=== PATIENT | female | born 1970 | race Caucasian/White ===

== ENCOUNTER 2017-12-29 09:03 | Day surgery (SDC) | payer OTHER ==
[2017-12-27 08:20] VITALS: BMI 30.9
[~2017-12-29 09:03] MED LIST: LACTATED RINGERS 1,000 ML IV SCH; LIDOCAINE 1% 20 ML VIAL (10MG/ML) FOR IV START INTRADERMA PRN; MIDAZOLAM 2 MG/2 ML VIAL IV PRN
[2017-12-29 09:54] VITALS: RESP 18; TEMP 97.9
[2017-12-29] MEDS ORDERED: LIDOCAINE 1% INJ 10MG/ML (20 ML MDV) ONE (10:35)
[2017-12-29] MEDS ORDERED: PROPOFOL 10 MG/ML 20 ML VIAL IV ONE (10:35)
[2017-12-29] MEDS ORDERED: GLYCOPYRROLATE 0.2 MG/ML 2 ML VIAL ONE (10:35)
--- NOTE | 2017-12-29 10:52 | P.PCN ---
Date of Procedure: 12/29/17 Procedure(s) Performed: Brief history: Patient is a pleasant 47-year-old white female, scheduled for an elective upper endoscopy as well as colonoscopy as a part of evaluation of GERD, intermittent heartburn and throat irritation. She also has prior history of colon polyps in the last colonoscopy was done 3 years ago. Procedure performed: Esophagogastroduodenoscopy Colonoscopy Preoperative diagnosis: GERD/throat irritation History of colon polyps Anesthesia: MAC Procedure: After informed consent was obtained from the patient was brought into the endoscopy unit and IV sedation was administered by anesthesia under continuous monitoring. Initially upper endoscopy was done. The Olympus GF 160 video endoscope was inserted inserted into the mouth and esophagus intubated without any difficulty and was gradually advanced into the stomach and duodenum and carefully examined. The bulb and second part of the duodenum appeared normal. The scope was then withdrawn into the stomach adequately insufflated with air and upon careful examination the antrum and body, cardia and fundus appeared normal. The scope was then withdrawn into the esophagus. The GE junction was located at 39 cm to the incisors. It appeared regular with no erythema erosions or ulcerations. Rest of the esophagus appeared normal. Patient tolerated the procedure well. At this time the patient continued to remain sedation. Initial digital rectal examination was normal. Olympus CF 160 video colonoscope was then inserted into the rectum and gradually advanced to the cecum without any difficulty. Careful examination was performed as the scope was gradually being withdrawn. The prep was excellent. The cecum, ascending colon, transverse colon, descending colon, sigmoid colon and rectum appeared normal. Retroflexion was performed in the rectum and no lesions were noted. Patient tolerated the procedure well. Impression: 1. Upper endoscopy revealed normal-appearing esophagus stomach and duodenum. 2. Colonoscopy was within normal limits with no evidence of colitis or colorectal Recommendations: Findings of this examination were discussed with the patient as well as her family. She can use [id number] Pepcid as needed for GERD symptoms. She was advised to have a repeat surveillance colonoscopy in 5 years because of the prior history of colon polyps.
[2017-12-29 11:28] VITALS: BP 114/76; PULSE 89
== END 2017-12-29 11:44 | disposition home or self-care (01) ==
LOC: ORWHC2ENDO 09:03
PROVIDERS: ATTEND Internal Medicine Gastroenterology
DX: K21.9 Gastro-esophageal reflux disease without esophagitis (principal); I44.7 Left bundle-branch block, unspecified; Z86.010 Personal history of colon polyps; Z88.2 Allergy status to sulfonamides; Z79.899 Other long term (current) drug therapy
CPT/HCPCS: 45378; 43235; J2001; J2704

== ENCOUNTER → 2018-03-21 | Outpatient (CLI) | payer OTHER ==
--- NOTE | 2018-03-21 13:41 | US ---
EXAMINATION TYPE: US thyroid st tissue head/neck DATE OF EXAM: 03/21/2018 COMPARISON: NONE CLINICAL HISTORY: E04.9 NONTOXIC GOITER,. Right neck swelling, on thyroid meds. GLAND SIZE: Right Lobe: 4.3 x 1.4 x 1.6 cm Overall Parenchyma: homogenous Left Lobe: 4.2 x 1.3 x 1.5 cm Overall Parenchyma: homogeneous Isthmus Thickness: 0.2 cm NODULES RIGHT: # of nodules measured on right: 0 LEFT: # of nodules measured on left: 0 ISTHMUS: # of nodules measured in the isthmus: 0 Bilateral neck scanned, left neck: 2.1 x 0.7 x 1.0cm hypoechoic vascular structure lateral to thyroid , probable lymph node. There is homogeneous normal sized thyroid without discrete nodule. Towards end of study technologist sullivan prominent lymph node with vascularity and loss of fatty hilum, reactive adenopathy is felt pres ent. IMPRESSION: Normal sized thyroid without discrete nodule. Correlate for left-sided infectious process or inflamma tion.
[2018-03-21 18:21] LABS: Gliadin AB IgA, Unit 0.7 U/mL
== END | disposition home or self-care (01) ==
LOC: RADUSWWP 06:56
PROVIDERS: ATTEND Allergy & Immunology
DX: E04.9 Nontoxic goiter, unspecified (principal); K21.9 Gastro-esophageal reflux disease without esophagitis
CPT/HCPCS: 76536; 82784; 83516; 84443

== ENCOUNTER → 2018-04-09 | Outpatient (CLI) | payer OTHER ==
--- NOTE | 2018-04-09 11:22 | US ---
EXAMINATION TYPE: US thyroid st tissue head/neck DATE OF EXAM: 04/09/2018 COMPARISON: US CLINICAL HISTORY: R59.0 Cervical Lymphadenopathy localized enlarged. F/U on enlarged lymph. On today's study lymph node measures 1.8 x 0.7 x 1.0cm versus prior measurement of 2.1 x 0.7 x 1.0 cm . On today's examination the lymph node demonstrates increased echogenicity which may reflect underly ing necrosis. IMPRESSION: Groin lymph node is slightly smaller in size however appears to be somewhat more necrotic on today's study. Correlate clinically and consider CT correlation.
== END | disposition home or self-care (01) ==
LOC: RADUSWWP 10:50
PROVIDERS: ATTEND Family Medicine
DX: R59.0 Localized enlarged lymph nodes (principal)
CPT/HCPCS: 76536

== ENCOUNTER → 2018-05-14 | Outpatient (CLI) | payer OTHER ==
--- NOTE | 2018-05-14 11:12 | MR ---
EXAMINATION TYPE: MR angio head wo con DATE OF EXAM: 05/14/2018 COMPARISON: CT neck dated 04/19/2018 HISTORY: Occlusion and stenosis cerebral artery TECHNIQUE: [id number] imaging was utilized to image the intracranial vasculature without contrast. 3-D refor mats were obtained for review. 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 Additionally both A2 segments of the anterior cerebral arteries originate from the right A1 segment, which is kenroy sly larger and dominant. There is also normal variant origin of the left posterior cerebral art cherelle. Right posterior communicating artery is diminutive. [place] appears incomplete. Althoug h a hypoplastic left anterior cerebral artery can be associated with anterior cerebral artery aneurys ms no aneurysm is identified. A slightly prominent infundibulum of the right posterior communicating artery is noted. No vascular occlusion is identified. The right vertebral artery is dominant. No karla rial venous malformation is noted. 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
== END | disposition home or self-care (01) ==
LOC: RADMRIMAIN 09:08
PROVIDERS: ATTEND Family Medicine
DX: I66.9 Occlusion and stenosis of unspecified cerebral artery (principal)
CPT/HCPCS: 70544

== ENCOUNTER → 2019-05-06 | Outpatient (CLI) | payer BC, OTHER ==
--- NOTE | 2019-05-06 09:09 | FL ---
EXAMINATION TYPE: FL barium swallow DATE OF EXAM: 05/06/2019 CLINICAL HISTORY: Chronic sinusitis. History of reflux and increased throat secretions, improvement i n symptoms with antireflux medication. TECHNIQUE: A double contrast esophagram is performed utilizing air and barium. A total of 31 second s of fluoroscopic time was utilized during procedure. 35 spot images saved during procedure. COMPARISON: None FINDINGS: The esophagus shows satisfactory motility and emptying into the stomach. No evidence of fi xed hiatal hernia or stricture noted. No diverticulum seen. Occasional episode of gastroesophageal re flux seen during real-time performance of study.. IMPRESSION: Some gastroesophageal reflux confirmed otherwise unremarkable study.
--- NOTE | 2019-05-06 09:16 | CT ---
EXAMINATION TYPE: CT sinus wo con DATE OF EXAM: 05/06/2019 COMPARISON: NONE HISTORY: Right orbital swelling, chronic sinusitis CT DLP: 683.9 mGycm. Automated Exposure Control for Dose Reduction was Utilized. TECHNIQUE: CT scan of the sinuses is performed without contrast, axial images are obtained, coronal r eformatted images are also reviewed. FINDINGS: There is rightward nasal septal deviation. Minimal mucosal hypertrophy of the left inferior nasal turbinate. Mucosal retention cysts versus moderate mucosal thickening anteriorly of the left m axillary sinus measures up to 2 cm on coronal imaging. Remainder of the paranasal sinuses are well ae rated. Ostiomeatal complexes are patent with slight narrowing in the right secondary to mucosal thick ening in a small Alyse cell measuring 3 mm. This may also be secondary to rightward nasal septal dev iation. No appreciable preseptal or post septal inflammatory fat stranding. Globes are symmetric and lenses a re in place. Extraocular muscles are also symmetric. Evaluation of the intracranial structures is high ited given technique. Dental fillings are incidentally seen. IMPRESSION: 1. Rightward nasal septal deviation. 2. Narrowing without occlusion of the right ostiomeatal complex secondary to a 3 mm Alyse cell and m ucosal thickening. 3. Mild left inferior nasal turbinate mucosal hypertrophy and left maxillary ovoid mucosal thickening dependently versus 2.0 cm mucosal retention cyst.
== END | disposition home or self-care (01) ==
LOC: RADCTMAIN 08:14
PROVIDERS: ATTEND Otolaryngology Otolaryngology/Facial Plastic Surgery
DX: J34.2 Deviated nasal septum (principal); J34.89 Other specified disorders of nose and nasal sinuses; J32.9 Chronic sinusitis, unspecified; K21.9 Gastro-esophageal reflux disease without esophagitis
CPT/HCPCS: 70486; 74220

== ENCOUNTER 2022-10-17 13:51 | Day surgery (SDC) | payer BC ==
[2022-10-13 13:52] VITALS: BMI 30.4
[~2022-10-17 13:51] MED LIST changes: -LACTATED RINGERS 1,000 ML IV SCH; -LIDOCAINE 1% 20 ML VIAL (10MG/ML) FOR IV START INTRADERMA PRN; -MIDAZOLAM 2 MG/2 ML VIAL IV PRN; +SODIUM CHLORIDE 0.9% 1,000 ML IV SCH; +ceFAZolin 1 GM in SODIUM CHLORIDE 0.9% IRRIG BTL 250 ML IRRIGATION PRN
[2022-10-17] MEDS ORDERED: SODIUM CHLORIDE 0.9% 500 ML 500 ML IV ONE (15:15)
[2022-10-17] MEDS ORDERED: LIDOCAINE 1% INJ 10MG/ML (20 ML MDV) SQ ONE (15:33)
--- NOTE | 2022-10-17 18:25 | P.EPPROC ---
- EP Procedure Note Electrophysiology Procedure Note: Loop monitor implant Primary physicians: Shandra Bonner Silverware Washer: Dr. Levy Indication: Recurrent presyncopal spells even while sitting, underlying left bundle branch block on twelve-lead EKG Patient was brought to the EP lab in a fasting state. Written informed consent was obtained prior to the procedure. The left pectoral area was prepped and draped per protocol. Intravenous antibiotic was administered preoperatively. A subcutaneous Loop monitor was implanted successfully and the wound was closed per protocol. The device was programmed to detect significant sky- arrhythmic and tachy-arrhythmic events, per protocol. Device and programming details: Syncope protocol
--- NOTE | 2022-10-17 18:26 | P.PRLE ---
RE: Linda Wilson Y Dear Dr. Ha Mckeon underwent implantation of a loop monitor for recent onset of recurrent dizzy spells him a sometimes while sitting and completely unprovoked She has an underlying left bundle branch block of long-standing I will send you an update once we have EKG documentation during such episodes in the future Thank you for entrusting me with the care of the patient Warm regards Sincerely Isra Levy
[2022-10-17 21:14] VITALS: BP 175/82; PULSE 72; RESP 16; TEMP 98.2
== END 2022-10-17 16:00 | disposition home or self-care (01) ==
LOC: CATHEP 13:51
PROVIDERS: ATTEND Internal Medicine Clinical Cardiac Electrophysiology
DX: I44.7 Left bundle-branch block, unspecified (principal); E78.5 Hyperlipidemia, unspecified; Z82.49 Family history of ischemic heart disease and other diseases of the circulatory system; Z79.899 Other long term (current) drug therapy
CPT/HCPCS: 33285; C1764; J0690; J2001

== ENCOUNTER 2023-01-03 08:39 | Day surgery (SDC) | payer BC ==
[2023-01-02 08:25] VITALS: BMI 30.9
[2023-01-03 09:11] VITALS: TEMP 97.5
[2023-01-03] MEDS: LACTATED RINGERS 1,000 ML IV SCH ×2 (09:11→09:42)
[2023-01-03] MEDS ORDERED: LIDOCAINE 1% (10MG/ML) FOR IV START SQ ONE (09:11)
[2023-01-03] MEDS ORDERED: PROPOFOL 10 MG/ML 20 ML VIAL IV ONE (09:43)
--- NOTE | 2023-01-03 10:16 | P.PCN ---
Date of Procedure: 01/03/23 Procedure(s) Performed: BRIEF HISTORY: Patient is a 52-year-old pleasant white female scheduled for an elective colonoscopy as a part of evaluation of prior history of colon polyps. Her last colonoscopy was 5 years ago. PROCEDURE PERFORMED: Colonoscopy snare polypectomy. PREOPERATIVE DIAGNOSIS: History of colon polyps. IV sedation per Anesthesia. PROCEDURE: After informed consent was obtained, the patient, was brought into the endoscopy unit. IV sedation was administered by Anesthesia under continuous monitoring. Digital rectal examination was normal. Initially the Olympus CF-160 flexible video colonoscope was then inserted in the rectum, gradually advanced into the cecum without any difficulty. Careful examination was performed as the scope was gradually being withdrawn. Ileocecal valve and the appendiceal orifice were visualized and appeared normal. Prep was excellent. Mucosa of the cecum, ascending colon, appeared normal. In the transverse colon there was a 7 mm polyp removed by snare polypectomy. Rest of the proximal rectum there was a 3 mm polyp removed by snare polypectomy. transverse colon, descending colon, sigmoid colon, and rectum appeared normal. Retroflexion was performed in the rectum and no lesions were seen. The patient tolerated the procedure well. IMPRESSION: 7 mm transverse colon polyp serous posterior polypectomy 3 mm rectal polyp status post snare polypectomy RECOMMENDATIONS: Findings of this examination were discussed with the patient well as her family. She was advised to follow with the biopsy results. If the biopsy results adenoma she can have a repeat colonoscopy in 5 years..
[2023-01-03 10:38] VITALS: BP 147/67; PULSE 78; RESP 18
== END 2023-01-03 10:54 | disposition home or self-care (01) ==
LOC: ORWHC2ENDO 08:39
PROVIDERS: ATTEND Internal Medicine Gastroenterology
DX: Z12.11 Encounter for screening for malignant neoplasm of colon (principal); D12.3 Benign neoplasm of transverse colon; E78.5 Hyperlipidemia, unspecified; Z86.010 Personal history of colon polyps; Z88.8 Allergy status to other drugs, medicaments and biological substances; Z79.899 Other long term (current) drug therapy; Z88.2 Allergy status to sulfonamides
CPT/HCPCS: 88305; 45385; J2704

== ENCOUNTER → 2023-08-14 | Outpatient (CLI) | payer BC ==
--- NOTE | 2023-08-21 20:37 | P.PCN ---
Date of Procedure: 08/14/23 Operative Findings: Home sleep study testing Date of services 08/14/2023 Pertinent history A 53-year-old female patient referred to me for sleep apnea evaluation. She reported loud snoring and sleep fragmentation and episodes of waking up in the middle of the night choking and gasping for air. The patient averages around 6- 7 hours of sleep. She has an Nogales score of 11. She has hyperlipidemia is comorbid conditions. Pertinent physical findings The patient's height is 5 feet and 4 inches, her body mass index is 31.4 Technical description The [employer] apnea link system was used to complete this home sleep study. This is a type III home sleep study. Total recording duration was 7 hours and 39 minutes. The study started at 10 PM and ended at 5:39 AM. The patient had total of 7 hours and 27 minutes of flow monitoring and 7 hours and 26 minutes of oxygen saturation monitoring Results The respiratory evaluation showed a total of 8 obstructive apneas and 118 obstructive hypopneas and the resulting AHI was 16.9 consistent with moderately severe disease Oxygenation analysis The baseline oxygen saturation was 95% when awake and the patient had an average pulse ox of 93% during sleep with a minimum pulse ox of 86%. The patient spent approximately 2 minutes of sleep time below pulse ox of 89% Cardiac summary Average heart rate was 66 with a minimum heart rate of 54 and maximum heart rate of 109 Assessment Obstructive sleep apnea moderately severe with an AHI of 16.9 associated with some mild tactile oxygen desaturations Chronic hypersomnia and a poor score of 11 Obesity with a BMI of 31.4 Hyperlipidemia Plan This is a case of mild obstructive sleep apnea. Obviously CPAP therapy should eliminate the patient's snoring and improve the patient's sleep quality and eliminate snoring and sleep fragmentation. No other major comorbidities. The patient will be offered CPAP therapy pressures of 5/15 cm of water with appropriate mask interface and the patient was seen back in the office in 30 to 90 days to assess clinical response and compliance we will make further recommen dation on the treatment accordingly.
== END ==
LOC: 3 N SLEEP 11:00
PROVIDERS: ATTEND Internal Medicine Critical Care Medicine
DX: G47.33 Obstructive sleep apnea (adult) (pediatric) (principal); G47.36 Sleep related hypoventilation in conditions classified elsewhere; G47.10 Hypersomnia, unspecified; E66.9 Obesity, unspecified; E78.5 Hyperlipidemia, unspecified; Z68.31 Body mass index [BMI] 31.0-31.9, adult; Z88.2 Allergy status to sulfonamides